=== PATIENT | female | born 1985 | race Caucasian/White ===

== ENCOUNTER 2020-07-15 09:19 | Emergency (ER) | payer SELFPAY ==
[~2020-07-15] VITALS: Ht 154.9 cm; Wt 59.0 kg
[2020-07-15 09:56] LABS: EOSINOPHILS % 0.7 % (0.0-5.0); HEMATOCRIT. 36.3 % (36.0-48.0); HEMOGLOBIN. 12.4 g/dL (12.0-16.0); LYMPHOCYTES % 19.3 % (20.0-50.0); MEAN CORPUSCULAR HEMOGLOBIN 29.6 pg (28.0-32.0); MEAN CORPUSCULAR VOLUME 86.5 fL (81.0-99.0); MEAN PLATELET VOLUME 8.4 fl (7.4-10.4); MONOCYTES % 5.2 % (2.0-8.0); NEUTROPHILS % 73.8 % (40.0-76.0); PLATELET 333 x1000/uL (130-400)
[2020-07-15 10:03] LABS: CHLORIDE 108 mEq/L (98-107)
[2020-07-15 10:07] LABS: ETHANOL BLOOD < 10 mg/dL
[2020-07-15 17:25] LABS: CLARITY URINE CLOUDY (CLEAR); COLOR URINE YELLOW (YELLOW); KETONES URINE 1+ (NEGATIVE); LEUKOCYTE ESTERASE URINE TRACE (NEGATIVE); NITRITE URINE NEGATIVE (NEGATIVE); OCCULT BLOOD URINE NEGATIVE (NEGATIVE); PROTEIN URINE NEGATIVE (NEGATIVE); SPECIFIC GRAVITY URINE 1.022 (1.005-1.030)
[2020-07-15 17:42] LABS: *BARBITURATES SCREEN URINE NEGATIVE (NEGATIVE); *BENZODIAZEPINES SCREEN URINE NEGATIVE (NEGATIVE); METHADONE URINE SCREEN NEGATIVE (NEGATIVE); OPIATES URINE SCREEN NEGATIVE (NEGATIVE)
[2020-07-15 17:43] LABS: PHENCYCLIDINE URINE SCREEN NEGATIVE (NEGATIVE)
[2020-07-15 17:44] LABS: *AMPHETAMINES SCREEN URINE PRESUMTIVE POSITIVE (NEGATIVE); *COCAINE SCREEN URINE PRESUMTIVE POSITIVE (NEGATIVE); CANNABINOID URINE SCREEN PRESUMTIVE POSITIVE (NEGATIVE)
[2020-07-16 10:50] VITALS: BP 108/50
== END 2020-07-16 10:50 | disposition home or self-care (01) ==
LOC: ER 09:19
DX: R45.851 Suicidal ideations (principal); J45.909 Unspecified asthma, uncomplicated; F31.9 Bipolar disorder, unspecified; F20.9 Schizophrenia, unspecified
CPT/HCPCS: 36415; 80053; 80305; 80307; 80320; 80329; 81003; 85025; 99285; G0480

== ENCOUNTER 2020-08-10 09:36 | Emergency (ER) | payer SELFPAY ==
[~2020-08-10] VITALS: Ht 160 cm; Wt 65.0 kg
[2020-08-10] MEDS ORDERED: MIDAZOLAM HCL 2 MG/2 ML VIAL IM ONE (10:00)
[2020-08-10] MEDS ORDERED: DEXT 5%/LACTATED RINGERS 1,000 ML IV ONE (10:15)
[2020-08-10] MEDS ORDERED: MIDAZOLAM HCL 2 MG/2 ML VIAL IV ONE (10:15)
[2020-08-10 10:20] LABS: BASOPHILS % 0.9 % (0.0-2.0); EOSINOPHILS % 0.4 % (0.0-5.0); HEMATOCRIT. 36.6 % (36.0-48.0); HEMOGLOBIN. 12.6 g/dL (12.0-16.0); LYMPHOCYTES % 21.4 % (20.0-50.0); MEAN CORPUSCULAR HEMOGLOBIN 29.9 pg (28.0-32.0); MEAN CORPUSCULAR VOLUME 87.1 fL (81.0-99.0); MEAN PLATELET VOLUME 8.2 fl (7.4-10.4); MONOCYTES % 8.7 % (2.0-8.0); NEUTROPHILS % 68.6 % (40.0-76.0); PLATELET 399 x1000/uL (130-400); RED CELL DISTRIBUTION WIDTH 13.5 % (11.6-14.6)
[2020-08-10 10:23] LABS: CLARITY URINE CLEAR (CLEAR); COLOR URINE DARK YELLOW (YELLOW); KETONES URINE TRACE (NEGATIVE); LEUKOCYTE ESTERASE URINE NEGATIVE (NEGATIVE); NITRITE URINE NEGATIVE (NEGATIVE); OCCULT BLOOD URINE NEGATIVE (NEGATIVE); PH URINE 5.5 (4.5-8.0); PROTEIN URINE NEGATIVE (NEGATIVE); SPECIFIC GRAVITY URINE 1.024 (1.005-1.030); UROBILINOGEN URINE 0.2 E.U./dL (0.2-1.0)
[2020-08-10 10:28] LABS: CHLORIDE 105 mEq/L (98-107)
[2020-08-10 10:33] LABS: ETHANOL BLOOD < 10 mg/dL
[2020-08-10 10:49] LABS: *BARBITURATES SCREEN URINE NEGATIVE (NEGATIVE); *BENZODIAZEPINES SCREEN URINE NEGATIVE (NEGATIVE); CANNABINOID URINE SCREEN NEGATIVE (NEGATIVE); METHADONE URINE SCREEN NEGATIVE (NEGATIVE); OPIATES URINE SCREEN NEGATIVE (NEGATIVE); PHENCYCLIDINE URINE SCREEN NEGATIVE (NEGATIVE)
[2020-08-10 10:50] LABS: *AMPHETAMINES SCREEN URINE PRESUMTIVE POSITIVE (NEGATIVE); *COCAINE SCREEN URINE PRESUMTIVE POSITIVE (NEGATIVE)
[2020-08-10] MEDS ORDERED: HALOPERIDOL LACTATE 5MG/ML VIAL IM ONE (13:45)
[2020-08-10 15:40] VITALS: BP 118/63
== END 2020-08-10 15:45 | disposition home or self-care (01) ==
LOC: ER 09:45
DX: F14.159 Cocaine abuse with cocaine-induced psychotic disorder, unspecified (principal); F15.159 Other stimulant abuse with stimulant-induced psychotic disorder, unspecified; R45.1 Restlessness and agitation; Z78.1 Physical restraint status; R73.9 Hyperglycemia, unspecified; F25.0 Schizoaffective disorder, bipolar type; J45.909 Unspecified asthma, uncomplicated
CPT/HCPCS: 36415; 80053; 80305; 80307; 80320; 80329; 81003; 82962; 85025; 96372; 96374; 99285; J1630; J2250; J7121; A4315; G0480